=== PATIENT | female | born 1960 | race Caucasian/White ===

== ENCOUNTER 2017-08-27 09:27 | Emergency (ER) | payer OTHER ==
[2017-08-27 09:34] VITALS: RESP 16
--- NOTE | 2017-08-27 09:36 | EDPHY ---
H & P Stated Complaint: cp Source: Patient Exam Limitations: No limitations - Personal History Current Tetanus/Diphtheria Vaccine: Yes Current Tetanus Diphtheria and Acellular Pertussis (TDAP): Yes - Medical/Surgical History Hx Asthma: No Hx Chronic Respiratory Disease: No Hx Diabetes: No Hx Cardiac Disease: No Hx Renal Disease: No Hx Cirrhosis: No Hx Alcoholism: No Hx HIV/AIDS: No Hx Splenectomy or Spleen Trauma: No Other PMH: ulcerative colitis - Social History Smoking Status: Former smoker Time Seen by Provider: 08/27/17 09:35 HPI/ROS: CHIEF COMPLAINT: Intermittent positional chest pain HISTORY OF PRESENT ILLNESS: The patient presents to the ED with several days of intermittent positional chest pain. The patient reports she has been experiencing fairly significant chest pain while laying in bed at night. There tends to be no alleviating or exacerbating symptoms during the evening. Her chest pain typically resolves in the afternoon when she is upright. The patient denies any history of exertional chest pain or shortness of breath. The patient denies history of fever, cough or congestion. The patient does have a history of ulcerative colitis. The patient denies pleuritic chest pain. She denies asymmetric calf pain or swelling. She denies additional acute complaints. REVIEW OF SYSTEMS: A comprehensive 10 point review of systems is otherwise negative aside from elements mentioned in the history of present illness. (Anson Herrera) - Physical Exam Exam: General Appearance: Alert, no distress Eyes: Pupils equal and round no pallor or injection ENT, Mouth: Mucous membranes moist Respiratory: There are no retractions, lungs are clear to auscultation Cardiovascular: Regular rate and rhythm Gastrointestinal: Abdomen is soft and nontender, no masses, bowel sounds normal Neurological: A&O, normal motor function, normal sensory exam, normal cranial nerves Skin: Warm and dry, no rashes Musculoskeletal: Neck is supple nontender Extremities: symmetrical, full range of motion (Anson Herrera) Constitutional: Initial Vital Signs Temperature (C) 36.6 C 08/27/17 09:32 Heart Rate 73 08/27/17 09:32 Respiratory Rate 16 08/27/17 09:32 Blood Pressure 138/85 H 08/27/17 09:32 O2 Sat (%) 96 08/27/17 09:32 O2 Delivery Mode Room Air Allergies/Adverse Reactions: No Known Allergies Allergy (Unverified 08/27/17 09:31) Home Medications: Medication Instructions Recorded Ambien 5MG (RX) 11/06/14 Imuran 50 mg (RX) 11/06/14 LORazepam [Ativan] 0.5 mg PO BID PRN #11 tablet 08/27/17 traMADol 08/27/17 Medical Decision Making - Diagnostics EKG Interpretation: EKG: Complete interpretation has been separately recorded in the [employer] archive. Summary impression: Sinus rhythm, ST segment depression is noted in the lateral and inferior leads (Anson Herrera) Imaging Results: Imaging Impressions Chest X-Ray 08/27/17 09:45 Impression: 1. Mildly hyperexpanded lungs. This is nonspecific but can be seen with increased inspiratory effort versus less likely mild air trapping. 2. Otherwise, no active cardiopulmonary disease seen. ED Course/Re-evaluation: The patient presents to the ED with several days of positional chest pain. She is currently chest pain-free. There is a family history of coronary artery disease in her mother had myocardial infarction at the age of 58. The patient did receive an aspirin immediately upon arrival. She has no evidence of ST segment elevation. The patient's cardiac echo demonstrates no evidence of wall motion abnormality. The patient's chest x-ray, D-dimer laboratory testing are within normal limits. The patient has atypical chest pain and nonspecific changes on her EKG but a strong family history of heart disease. I did sonalbside Dr. Blanchard from Cardiology who is making arrangements for stress testing in the emergency department. The patient has been under a fair amount of anxiety and certainly that may be contributing to her symptoms. Of her treadmill stress test is negative I do feel that she can be given a short course of Ativan which she has requested. The patient will be turned over to Dr. Gaytan at shift change. The patient will be written up as if her treadmill stress test is normal. I have written her a prescription for Ativan. If her treadmill stress test is abnormal she will be admitted to the hospital under the care of Cardiology. (Anson Herrera) This patient was signed out to me at shift change. The exercise treadmill test is unremarkable for any significant ischemia according to care off from [facility]. She recommends follow up with the patient's PCP. The [facility] evaluation of the patient states that they feel this is very low risk patient with noncardiac chest pain. We will now discharge the patient. (Carlos Gaytan) Differential Diagnosis: Differential diagnosis considered includes acute coronary syndrome, pulmonary embolism, pericarditis, myocarditis, anxiety reaction, esophageal spasm (Anson Herrera) - Data Points Laboratory Results: Laboratory Results 08/27/17 09:45 08/27/17 09:45 08/27/17 08/27/17 08/27/17 09:45 09:45 09:45 WBC 4.90 10^3/uL 10^3/uL (3.80-9.50) RBC 4.11 10^6/uL L 10^6/uL (4.18-5.33) Hgb 13.9 g/dL g/dL (12.6-16.3) Hct 40.7 % % (38.0-47.0) MCV 99.0 fL fL (81.5-99.8) MCH 33.8 pg pg (27.9-34.1) MCHC 34.2 g/dL g/dL (32.4-36.7) RDW 14.1 % % (11.5-15.2) Plt Count 291 10^3/uL 10^3/uL (150-400) MPV 9.5 fL fL (8.7-11.7) Neut % (Auto) 76.3 % H % (39.3-74.2) Lymph % (Auto) 13.5 % L % (15.0-45.0) Stark % (Auto) 8.6 % % (4.5-13.0) Eos % (Auto) 0.6 % % (0.6-7.6) Baso % (Auto) 0.8 % % (0.3-1.7) Nucleat RBC Rel Count 0.0 % % (0.0-0.2) Absolute Neuts (auto) 3.74 10^3/uL 10^3/uL (1.70-6.50) Absolute Lymphs (auto) 0.66 10^3/uL L 10^3/uL (1.00-3.00) Absolute Monos (auto) 0.42 10^3/uL 10^3/uL (0.30-0.80) Absolute Eos (auto) 0.03 10^3/uL 10^3/uL (0.03-0.40) Absolute Basos (auto) 0.04 10^3/uL 10^3/uL (0.02-0.10) Absolute Nucleated RBC 0.00 10^3/uL 10^3/uL (0-0.01) Immature Gran % 0.2 % % (0.0-1.1) Immature Gran # 0.01 10^3/uL 10^3/uL (0.00-0.10) D-Dimer < 0.27 ug/mLFEU ug/mLFEU (0.00-0.50) Sodium 145 mEq/L H mEq/L (134-144) Potassium 3.5 mEq/L mEq/L (3.5-5.2) Chloride 106 mEq/L mEq/L (97-110) Carbon Dioxide 23 mEq/l mEq/l (22-31) Anion Gap 16 mEq/L mEq/L (8-16) BUN 9 mg/dL mg/dL (7-23) Creatinine 0.6 mg/dL mg/dL (0.6-1.0) Estimated GFR > 60 Glucose 101 mg/dL H mg/dL (70-100) Calcium 10.0 mg/dL mg/dL (8.5-10.4) Total Bilirubin 3.0 mg/dL H mg/dL (0.1-1.4) Conjugated Bilirubin 0.3 mg/dL mg/dL (0.0-0.5) Unconjugated Bilirubin 2.7 mg/dL H mg/dL (0.0-1.1) AST 34 IU/L IU/L (14-46) ALT 26 IU/L IU/L (9-52) Alkaline Phosphatase 54 IU/L IU/L (38-126) Troponin I < 0.012 ng/mL ng/mL (0.000-0.034) Total Protein 7.2 g/dL g/dL (6.3-8.2) Albumin 4.5 g/dL g/dL (3.5-5.0) Lipase 52 IU/L IU/L (23-300) Medications Given: Discontinued Medications Aspirin (Aspirin) 324 mg PO EDNOW ONE Stop: 08/27/17 09:46 Last Admin: 08/27/17 09:49 Dose: 324 mg Departure - Departure Disposition: Home, Routine, Self-Care Clinical Impression: Chest pain Condition: Good Instructions: Chest Pain (ED) Additional Instructions: 1. Please follow-up with your primary care provider. 2. You have been given a short course of Ativan for anxiety. This medication is only appropriate for short-term use and can be habit forming. A can also precipitate rebound anxiety if use it continuously for more than 3 days. 3. Please return to the emergency department for any markedly worsening symptoms or other concerns. Referrals: Petra Hernandez MD [Primary Care Provider] - As per Instructions Prescriptions: LORazepam [Ativan] 0.5 mg PO BID PRN #11 tablet PRN Reason: for anxiety
--- NOTE | 2017-08-27 09:41 | CPEKG ---
Heart Rate: 69 RR Interval: 870 P-R Interval: 160 QRSD Interval: 90 QT Interval: 364 QTC Interval: 390 P Gregory: 75 QRS Gregory: 0 T Wave Gregory: 68 EKG Severity - NORMAL ECG - EKG Impression: SINUS RHYTHM, mild ST depression noted in the inferior leads EKG Impression: SINUS RHYTHM Electronically Signed By: Anson Herrera 27-Aug-2017 10:52:19
[2017-08-27] MEDS ORDERED: ASPIRIN 81 MG CHEWABLE TAB PO ONE (09:45)
[2017-08-27 10:07] LABS: PLATELET COUNT 291 10^3/uL (150-400)
--- NOTE | 2017-08-27 12:08 | ECHO ---
[email or web address] [address] [address] Main: [phone] Fax: [email or web address] Echocardiogram Name: HECTOR LARIOS MR#: [id number] Study Date: 08/27/2017 Study Time: 10:48 AM Date of : 1960 Age: 56 year(s) Height: 165.1 cm (65 in.) Weight: 49.9 kg (110 lb.) BSA: 1.53 m2 Gender: Female Examination: Echo Indication: Chest Pain, EKG Changes Image Quality: Contrast: Requested by: Anson Herrera BP: 148 mmHg/84 mmHg Heart Rate: Rhythm: Normal sinus rhythm Indication: Chest Pain, EKG Changes Procedure Staff Barrer And Tacker: Venkata Herrera Reading Physician: Gavin Blanchard Requesting Provider: Conclusions: Normal size left ventricle. No LV hypertrophy. Normal global systolic LV function. EF is 61 %. No regional wall motion abnormality. The pulmonary artery pressure is normal. No pericardial effusion. Measurements: Chambers Valvular Assessment AV/MV Valvular Assessment TV/PV Normal Normal Normal Name Value Range Name Value Range Name Value Range Ao Hali (MM): 2.9 cm (2.2 cm-3.7 AV Vmax: 1.32 m/s (1 m/s-1.7 TR Vmax: 2.51 mm/s ( - ) cm) m/s) TR PGmax: 25 mmHg ( - ) IVSd (2D): 0.5 cm (0.6 cm-1.1 AV maxP mmHg ( - ) syst. PAP: 30 mmHg ( - ) cm) LVOT Vmax: 0.92 m/s (0.7 m/s-1.1 PV Vmax: 0.87 m/s (0.6 m/s-0.9 LVDd (2D): 4.4 cm (3.9 cm-5.3 m/s) m/s) cm) MV E Vmax: 0.59 m/s ( - ) PV PGmax: 3 mmHg ( - ) LVDs (2D): 3.0 cm (2.1 cm-4 MV A Vmax: 0.74 m/s ( - ) cm) MV E/A: 0.80 ( - ) LVPWd (2D): 0.8 cm ( - ) LVEF (2D): 61 (>=54 %) Continued Measurements: Valvular Assessment AV/MV Valvular Assessment TV/PV Name Value Name Value MV E/E' Septal: 9.40 CVP (est.): 5 mmHg MV E/E' Lateral: 5.60 Patient: HECTOR LARIOS Study Date: 08/27/2017 Page 1 of 2 10:48 AM Findings: Left Ventricle: Normal size left ventricle. No LV hypertrophy. Normal global systolic LV function. EF is 61 %. No regional wall motion abnormality. Normal diastolic LV function. Right Ventricle: Normal size right ventricle. Left Atrium: The left atrium is normal in size. Right Atrium: The right atrium is normal in size. Mitral Valve: The mitral valve is normal in appearance and function. There is no mitral valve regurgitation. Aortic Valve: The aortic valve is normal in appearance and function. The aortic valve is tri-leaflet. Tricuspid Valve: The tricuspid valve is normal in appearance and function. Trivial tricuspid valve regurgitation. The pulmonary artery pressure is normal. Pulmonic Valve: The pulmonic valve is normal in appearance and function. Aorta: The aorta is normal. Pericardium: No pericardial effusion. Exam Comments: Chest Pain, Eval for left venticular wall motion or pericardial effusion. There is no obvious LV wall motion and there is no evidence of a pericardial effusion.. (No Signature Object) Patient: HECTOR LARIOS Study Date: 08/27/2017 Page 2 of 2 10:48 AM [id number]
[2017-08-27 14:40] VITALS: BP 133/93; PULSE 71; TEMP 98.4; O2SAT 97
--- NOTE | 2017-08-27 15:01 | CPR ---
[f rep st] NONINVASIVE CARDIAC PROCEDURE REPORT DATE OF PROCEDURE: 08/27/2017 PROCEDURE: Exercise treadmill test INDICATION: The patient is a 56-year-old female who presented to the hospital complaining of shortne ss of breath and dizziness after taking tramadol. Her symptoms persisted for 4 days and therefore, s he presented to the hospital. She denies any history of hypertension, hyperlipidemia, diabetes, or o ngoing tobacco use. She does have a family history of coronary artery disease with her mother having a myocardial infarction in her late 50s. DESCRIPTION OF PROCEDURE: Consent was obtained. The patient was placed on continuous telemetry. He r resting EKG reveals normal sinus rhythm with minimal ST depression in the inferior and lateral lead s. The patient walked on the treadmill for 6-1/2 minutes without any associated chest discomfort. S he remained in normal sinus rhythm with very rare PVCs. She did develop upsloping ST depression of h stephie a millimeter with exertion. In late recovery, she had flat ST depression of half a millimeter di ffusely. She was asymptomatic throughout the treadmill test. Her blood pressure at rest was 150/90, and peaked at 196/110. Her blood pressure returned to baseline at 6 minutes into recovery. PLAN: Equivocal exercise treadmill test. If there is a high suspicion for coronary disease, conside r further cardiac testing with a more sophisticated study, such as a nuclear stress test. /[id number]/[id number]
== END 2017-08-27 14:39 | disposition home or self-care (01) ==
DX: R07.9 Chest pain, unspecified (principal); Z87.891 Personal history of nicotine dependence